=== PATIENT | male | born 1950 | race Caucasian/White ===

== ENCOUNTER 2017-08-02 06:02 | Day surgery (SDC) | payer MEDICARE ==
[~2017-08-02] VITALS: Ht 175.3 cm; Wt 117.5 kg
[~2017-08-02 06:02] MED LIST: ASPI-1197 PO; DULA0.75 SQ; EMPA25TA PO; LEVO50TA11 PO; LOSA25TA21 PO; METF10004 PO; MULT-1258 PO; PRAV40TA3 PO
[2017-08-02] MEDS ORDERED: SODIUM CHLORIDE 0.9% 1000ML 1,000 ML IV ONE (06:32)
[2017-08-02 06:37] VITALS: BP 138/76
[2017-08-02] MEDS ORDERED: GLYCOPYRROLATE 0.2 MG/ML 5 ML VIAL ONE (07:27)
[2017-08-02] MEDS ORDERED: SUCCINYLCHOLINE CHLORIDE 20 MG/ML 10 ML VIAL ONE (07:27)
[2017-08-02] MEDS ORDERED: LIDOCAINE HCL 2% 20ML ONE (07:27)
[2017-08-02] MEDS ORDERED: PROPOFOL 1000 MG/100 ML 100 ML IV ONE (07:28)
[2017-08-02 08:52] VITALS: BP 98/50
== END 2017-08-02 09:24 | disposition home or self-care (01) ==
LOC: DAH 06:02 → ENDO 06:02
PROVIDERS: ATTEND Internal Medicine
DX: Z12.11 Encounter for screening for malignant neoplasm of colon (principal); D12.2 Benign neoplasm of ascending colon; D12.4 Benign neoplasm of descending colon; D12.3 Benign neoplasm of transverse colon; E11.69 Type 2 diabetes mellitus with other specified complication; M17.0 Bilateral primary osteoarthritis of knee; E03.4 Atrophy of thyroid (acquired); E78.2 Mixed hyperlipidemia; Z88.8 Allergy status to other drugs, medicaments and biological substances; I10 Essential (primary) hypertension; E66.01 Morbid (severe) obesity due to excess calories; K57.30 Diverticulosis of large intestine without perforation or abscess without bleeding; K64.8 Other hemorrhoids; Z79.899 Other long term (current) drug therapy
CPT/HCPCS: 45380; 45381; 45385; 82948 ×2; 88305; A4606; A4649; J0330; J2704; J3490 ×2; J7030

== ENCOUNTER 2018-04-11 07:22 | Day surgery (SDC) | payer MEDICARE ==
[~2018-04-11] VITALS: Ht 177.8 cm; Wt 110.0 kg
[~2018-04-11 07:22] MED LIST changes: -DULA0.75 SQ; +EXEN2PEN SQ; +LOSA25TA16 PO; -LOSA25TA21 PO; +METF-446 PO; -METF10004 PO; +SODIUM CHLORIDE 0.9% 1000ML 1,000 ML IV ONE
[2018-04-11 07:36] VITALS: BP 127/74
[2018-04-11] MEDS ORDERED: PROPOFOL 10 MG/ML 20ML VIAL IV ONE ×2 (08:26→09:03)
[2018-04-11 09:13] VITALS: BP 107/75
[2018-04-11 09:18] VITALS: BP 129/85
[2018-04-11 09:24] VITALS: BP 126/76
[2018-04-11 09:33] VITALS: BP 130/77
== END 2018-04-11 09:55 | disposition home or self-care (01) ==
LOC: DAH 07:22
PROVIDERS: ATTEND Internal Medicine
DX: Z09 Encounter for follow-up examination after completed treatment for conditions other than malignant neoplasm (principal); D12.5 Benign neoplasm of sigmoid colon; K63.5 Polyp of colon; D12.3 Benign neoplasm of transverse colon; Z86.010 Personal history of colon polyps; E78.5 Hyperlipidemia, unspecified; E11.9 Type 2 diabetes mellitus without complications; M19.90 Unspecified osteoarthritis, unspecified site; Z98.890 Other specified postprocedural states; Z68.37 Body mass index [BMI] 37.0-37.9, adult; Z79.84 Long term (current) use of oral hypoglycemic drugs; E03.9 Hypothyroidism, unspecified; E66.9 Obesity, unspecified; K64.0 First degree hemorrhoids; K62.1 Rectal polyp
CPT/HCPCS: 45380; 45381; 45385; 82948 ×2; 88305; 93005; A4606; J2704 ×2; J7030; 45384